=== PATIENT | female | born 1975 | race Asian ===

== ENCOUNTER → 2024-01-05 12:15 | Outpatient (REF) | payer BC, SELFPAY | LOC: WDC 12:15 | PROVIDERS: ATTENDING PHYSICIAN Nurse Practitioner | DX: Z12.31 Encounter for screening mammogram for malignant neoplasm of breast (principal) | CPT/HCPCS: 77063; 77067 ==

== ENCOUNTER → 2024-04-01 06:39 | Day surgery (SDC) | payer BC, SELFPAY | LOC: GI 06:39 | PROVIDERS: ATTENDING PHYSICIAN Internal Medicine Gastroenterology | DX: Z12.11 Encounter for screening for malignant neoplasm of colon (principal); K64.8 Other hemorrhoids | CPT/HCPCS: G0121 ==